=== PATIENT | female | born 1995 | race Caucasian/White ===

== ENCOUNTER 2019-04-30 08:00 | Outpatient (CLI) | payer OTHER ==
[2019-04-30 20:28] LABS: TRICHOMONAS VAGINALIS DNA NEGATIVE (NEGATIVE)
== END 2019-04-30 23:59 | disposition home or self-care (01) ==
LOC: LAB.R 08:00
PROVIDERS: ATTEND Nurse Practitioner Obstetrics & Gynecology
DX: Z36.85 Encounter for antenatal screening for Streptococcus B (principal); Z11.3 Encounter for screening for infections with a predominantly sexual mode of transmission
CPT/HCPCS: 87491; 87591; 87661; 87797

== ENCOUNTER 2019-05-23 08:34 | Outpatient (CLI) | payer OTHER ==
[2019-05-23 08:57] VITALS: BP 115/82
[2019-05-23] MEDS ORDERED: MORPHINE 10 MG/ML VIAL IVP ONE (10:00)
[2019-05-23] MEDS ORDERED: PROMETHAZINE 25 MG/1 ML VIAL IM ONE (10:00)
--- NOTE | 2019-05-23 12:56 | PROVIDER PROGRESS NOTE ---
- HPI Chief Complaint: Labor Check Current : Current EDU 05/25/19 Gestation 39 Weeks and 5 Days 1 Para 0 Vital Signs Temperature 37.4 C 05/23/19 08:46 Heart Rate 95 05/23/19 08:46 Respiratory Rate 18 05/23/19 08:46 Blood Pressure 115/82 H 05/23/19 08:46 Temperature 37.4 C 05/23/19 08:46 Heart Rate 95 05/23/19 08:46 Respiratory Rate 18 05/23/19 08:46 Blood Pressure 115/82 H 05/23/19 08:46 O2 Saturation - Procedures OB Procedure Performed: NST Service Date of procedure: 05/23/19 - Plan Plan: HPI: Pavel presents to [facility] with complaints of contractions that have felt more significant since midnight last night. She denies vaginal bleeding or leakage of fluid and reports +FM. NST performed 05/23/2019 NST read 05/23/2019 NST reactive. FHR baseline 130s, moderate variability, + accels, no decels SVE upon arrival closed/thick/high - unchanged from 48hours prior office visit. Pt given 10mg Morphine and 25mg phenergan for therapeutic rest. 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 Pt released home with precautions. FINAL DIAGNOSIS: False labor >39wks gestation
== END 2019-05-23 10:30 | disposition home or self-care (01) ==
LOC: WFO 08:34 → FBP 08:37 → WFO 10:30
PROVIDERS: ATTEND Nurse Practitioner Obstetrics & Gynecology
DX: O47.1 False labor at or after 37 completed weeks of gestation (principal); Z3A.39 39 weeks gestation of pregnancy
CPT/HCPCS: 96372; 96374; 99212; 99213

== ENCOUNTER 2019-05-24 06:24 | Outpatient (CLI) | payer OTHER ==
[2019-05-24 06:37] VITALS: BP 109/74
[2019-05-24] MEDS ORDERED: MORPHINE 10 MG/ML VIAL IM ONE (08:15)
[2019-05-24] MEDS ORDERED: PROMETHAZINE 25 MG/1 ML VIAL IM ONE (08:15)
--- NOTE | 2019-05-24 23:44 | PROVIDER PROGRESS NOTE ---
- HPI Current : Current EDU 05/25/19 Gestation 39 Weeks and 6 Days 1 Para 0 Vital Signs Temperature 98.4 F 05/24/19 06:36 Heart Rate 105 H 05/24/19 06:36 Respiratory Rate 18 05/24/19 06:36 Blood Pressure 109/74 05/24/19 06:36 Temperature 98.4 F 05/24/19 06:36 Heart Rate 105 H 05/24/19 06:36 Respiratory Rate 18 05/24/19 06:36 Blood Pressure 109/74 05/24/19 06:36 O2 Saturation - Exam Cervical exam: FT/long/high Unchanged over serial exam EFM 135 mod jarrod 15x15 accels no decels TOCO: Q3-10; irreg - Procedures OB Procedure Performed: NST Diagnosis/Indication for NST: Other (early vs threatened/flase labor) NST Procedure: NST Procedure Start Date 05/24/19 Start Time 06:35 Vibroacoustic Stimulation Used No Patient States Movement Yes Service Date of procedure: 05/24/19 Findings: 23 yo at 39+6 wga with painful contractions No change in cervical exam and irreg contraction pattern Given morphine sleep for pain relief Warning signs reviewed and discharged to home
== END 2019-05-24 08:29 | disposition home or self-care (01) ==
LOC: WFO 06:24 → FBP 06:25 → WFO 08:29
PROVIDERS: ATTEND Obstetrics & Gynecology
DX: Z34.03 Encounter for supervision of normal first pregnancy, third trimester (principal)
CPT/HCPCS: 99213

== ENCOUNTER 2019-05-24 10:57 | Inpatient (IN) | payer OTHER ==
[2019-05-24 11:29] LABS: RUPTURE OF MEMBRANES PLUS POSITIVE (NEGATIVE)
[2019-05-24 12:49] LABS: BASOPHILS % (AUTO) 0.3 %; EOSINOPHILS % (AUTO) 0.2 %; HGB - HEMOGLOBIN 12.9 g/dL (12.0-16.0); LYMPHOCYTES # (AUTO) 1.5 10^3/uL (1.5-3.5); LYMPHOCYTES % (AUTO) 13.8 %; MEAN CORPUSCULAR HEMOGLOBIN 31.4 pg (27.0-31.0); MEAN CORPUSCULAR HGB CONC 34.7 g/dL (32.0-36.0); MEAN CORPUSCULAR VOLUME 90.5 fL (81.0-99.0); MEAN PLATELET VOLUME 10.5 fL (7.9-10.8); MONOCYTES # (AUTO) 1.1 10^3/uL (0.0-1.0); MONOCYTES % (AUTO) 10.1 %; NEUTROPHILS # (AUTO) 7.8 10^3/uL (1.5-6.6); NEUTROPHILS % (AUTO) 74.1 %; PLT - PLATELET COUNT 191 10^3/uL (130-450); RED BLOOD COUNT 4.11 10^6/uL (4.20-5.40); RED CELL DISTRIBUTION WIDTH 13.1 % (12.0-15.0); WHITE BLOOD COUNT 10.6 x10^3/uL (4.8-10.8)
[2019-05-24] MEDS ORDERED: LACTATED RINGERS 1,000 ML IV ONE (13:52)
--- NOTE | 2019-05-24 13:56 | HISTORY & PHYSICAL EXAMINATION ---
Admit History - : 1 Parity: 0 Care: positive: [facility] Risk/History: positive: None Complications This : positive: None Smoking Status: Never smoker - Mother's Labs Mother's RH: positive: Positive GBS: positive: Group B Step Negative Rubella Status: positive: Immune - Other Maternal History Other Maternal History: Patient is a 23 yo at 39w6d EGA with SROM. Patient had presented overnight iwth painful contractions and underwent morphine sleep. Presented a few horus later with painful contractions and gross rupture. GBS neg has been uncomplicated. Transfer from [facility]. A+/Rub imm HIV neg,GCCT neg/neg, RPR NR, Hep B neg Hep C neg, Glucola 180, 3 H GTT 66/141/96/103--> wnl FAS wnl, posterior placenta HSV denies Complete influenza and TDaP immunizations Male: Estefania Meds/Allgy - Allergies Allergies/Adverse Reactions: Allergies Allergy/AdvReac Type Severity Reaction Status Date / Time No Known Drug Allergies Allergy Verified 05/23/19 09:53 Review of Systems - Other Findings Other Findings: Back pain c/w labor. As per HPI, otherwise remaining systems are negative. Physical - Abdominal Exam Vital Signs: Reviewed. wnl Contraction Frequency (min/apart): Q2-3 Contraction Intensity: positive: Moderate Uterine Resting Tone: positive: Soft - Monitoring Heart Rate Baseline: 145 Strip Review: positive: Category I - Presentation Presentation: positive: Vertex - Vaginal Exam Membranes: positive: Membranes ruptured Dilation (in cm): 2 Effacement (%): 90 Station: positive: -3 Cervical Position: positive: Posterior - Speculum Exam Findings: positive: Gross leak Plan for Labor - Plan For Labor Plan for Labor: SROM in early labor; GBS neg Expectant management; augment with pitocin as indicated FWB: Vertex, well grown, cat I tracing, GBS neg -Intermittent monitoring as long as remains Cat I PAIN: Epidural as desired Reviewed availability of nitrous oxide Would avoid fentanyl given recency of morphine sleep Inpatient care
[2019-05-24] MEDS ORDERED: LACTATED RINGERS 1,000 ML IV SCH ×2 (14:00→23:00)
[2019-05-24] MEDS ORDERED: TERBUTALINE 1 MG/ML VIAL SUBQ PRN (14:00)
[2019-05-24] MEDS ORDERED: SODIUM CHLORIDE FLUSH 0.9% 10 ML SYRINGE IVP PRN (14:00)
[2019-05-24] MEDS ORDERED: ONDANSETRON 4 MG/2 ML VIAL IVP PRN ×2 (14:00→14:43)
[2019-05-24] MEDS ORDERED: METOCLOPRAMIDE 10 MG/2 ML VIAL IVP PRN ×2 (14:00→14:43)
[2019-05-24] MEDS ORDERED: ROPIVACAINE 0.2% 200 MG/100 ML BAG EP ONE (14:02)
[2019-05-24] MEDS ORDERED: ROPIVACAINE 0.2% PF 20ML VIAL ONE (14:03)
[2019-05-24] MEDS ORDERED: LACTATED RINGERS 500 ML IV ONE (14:43)
[2019-05-24] MEDS ORDERED: diphenhydrAMINE INJ 50 MG/ML VIAL IVP PRN (14:43)
[2019-05-24] MEDS ORDERED: NALOXONE 0.4 MG/ML VIAL IVP PRN (14:43)
[2019-05-24] MEDS ORDERED: NALBUPHINE 10 MG/ML AMP IVP PRN (14:43)
[2019-05-24] MEDS ORDERED: ROPIVACAINE 0.2% 200 MG/100 ML BAG EP PRN (14:43)
[2019-05-24] MEDS ORDERED: ePHEDrine 50 MG/ML VIAL IVP PRN (14:43)
--- NOTE | 2019-05-24 14:46 | ANESTHESIA ---
Pre-Anesthesia VS, & Labs - Diagnosis term labor, IUP - Procedure vaginal delivery Height 5 ft 2 in Weight (kg) 77.111 kg - NPO Last Food Intake: t/o day - Is Patient ?: Yes - Lab Results Current Lab Results: Laboratory Tests 05/24/19 12:40: WBC 10.6, RBC 4.11 L, Hgb 12.9, Hct 37.2, MCV 90.5, MCH 31.4 H, MCHC 34.7, RDW 13.1, Plt Count 191, MPV 10.5, Neut # (Auto) 7.8 H, Lymph # (Auto) 1.5, [place] # (Auto) 1.1 H, Eos # (Auto) 0.0, Baso # (Auto) 0.0, Absolute Nucleated RBC 0.00, Nucleated RBC % 0.0 05/24/19 12:40: Blood Type A POSITIVE, Antibody Screen NEGATIVE Lab results reviewed: Yes Fish Bones: 05/24/19 12:40 Home Medications and Allergies Active Medications Lactated Ringer's (Lr) 1,000 mls @ 150 mls/hr IV .Q6H40M SUSHMA Metoclopramide HCl (Reglan Inj) 10 mg IVP Q6H PRN PRN Reason: Nausea / Vomiting Ondansetron HCl (Zofran Inj) 4 mg IVP Q4H PRN PRN Reason: Nausea / Vomiting Sodium Chloride (Normal Saline Flush 0.9%) 10 ml IVP PRN PRN PRN Reason: NEEDED PER PROVIDER ORDERS Sodium Chloride (Normal Saline Flush 0.9%) 10 ml IVP 0100,0900,1700 SUSHMA Terbutaline Sulfate (Terbutaline) 0.25 mg SUBQ Q1H PRN PRN Reason: tachysystole Allergies/Adverse Reactions: Allergies Allergy/AdvReac Type Severity Reaction Status Date / Time No Known Drug Allergies Allergy Verified 05/23/19 09:53 Anes History & Medical History - Anesthetic History Anesthesia Complications: reports: No previous complications Family history of Anesthesia Complications: Denies Family history of Malignant Hyperthermia: Denies - Medical History Smoking Status: Never smoker - Surgical History Other Past Surgical History: wisdom teeth extraction, sedation - Obstetrical History : 1 Parity: 0 Events: positive: None Complications: positive: None Exam General: Alert, Oriented x3, Cooperative Dental: WNL Mouth Openin Fingerbreadth Neck Mobility: Normal Mallampati classification: II Thyromental Distance: 4-6 cm Respiratory: No respiratory distress Cardiovascular: Regular rate Mental/Cognitive Status: Alert/Oriented X3, Normal for patient Cognitive Status: Within normal limits Plan Anesthesia Type: Epidural Consent for Procedure(s) Verified and Reviewed: Yes Code Status: Attempt Resuscitation ASA classification: 2-Mild systemic disease Is this case an emergency?: No
[2019-05-24] MEDS ORDERED: OXYTOCIN/SODIUM CHLORIDE 500 ML IV SCH (17:00)
[2019-05-24] MEDS ORDERED: SODIUM CHLORIDE FLUSH 0.9% 10 ML SYRINGE IVP SCH (17:00)
[2019-05-24] MEDS ORDERED: fentaNYL 100 MCG/2 ML VIAL ONE ×2 (17:24→20:47)
--- NOTE | 2019-05-24 17:42 | CONSULTATION NOTE ---
Consultation Report: Call for new pain with contractions, midline, as well as left flank pain. Sensory assessed at T12. Good motor of bilat lower extremities. 8cc 0.2% Ropi with 100mcg fentanyl given in 2 5cc doses after negative aspiration. Pt repostioned onto L side. VSS. Pt states complete relief of both complaints after 4 mins.
[2019-05-24] MEDS ORDERED: SODIUM CHLORIDE FLUSH 0.9% 10 ML SYRINGE ONE (20:48)
--- NOTE | 2019-05-24 21:15 | CONSULTATION NOTE ---
Consultation Report: Called for new sharp midline pain, more inferior now, with contractions. Also complains of left flank pain that has returned. Sensory level again assessed at T12 Bilat with good motor to LE. Bolus epidural with 100mcg fentanyl and 5cc 0.2% Ropi. Epidural settings changed to intermittent bolus. 10cc to be delivered [id number] with PCEA at 4cc q10min prn. 1st bolus given via pump over 2mins. Pt remained positioned on L side for bolus. States pain has reduced to a 5/10 down from 10. RN with plans to check pt once comfortable. Pt found to be complete in dilation following exam@[id number]
[2019-05-24] MEDS ORDERED: AMPICILLIN 2 GM VIAL IV ONE (21:58)
[2019-05-24] MEDS ORDERED: SODIUM CHLORIDE 0.9% IV SCH (22:00)
[2019-05-24] MEDS ORDERED: GENTAMICIN IV SCH (22:00)
[2019-05-24] MEDS ORDERED: miSOPROStoL 200 MCG TABLET BC ONE (22:15)
[2019-05-24] MEDS ORDERED: miSOPROStoL 200 MCG TABLET ONE (22:15)
[2019-05-24] MEDS ORDERED: METHYLERGONOVINE 0.2 MG/ML AMP IM PRN (22:26)
[2019-05-24] MEDS ORDERED: ONDANSETRON ODT 4 MG TABLET TL PRN (22:26)
[2019-05-24] MEDS ORDERED: SIMETHICONE CHEW 80 MG TABLET PO PRN (22:26)
[2019-05-24] MEDS ORDERED: CARBOPROST TROMETHAMINE 250 MCG/ML AMP IM PRN (22:26)
--- NOTE | 2019-05-24 22:30 | DELIVERY NOTE ---
Delivery Note - Infant Delivery Method Infant Delivery Method: positive: Spontaneous vaginal delivery - Presentation Presentation: positive: Vertex - Nuchal Cord Nuchal Cord: positive: None - Anesthetic Anesthetic Type: - Amniotic Fluid Description Amniotic Fluid Description: positive: Clear - Episiotomy Type Episiotomy Type: positive: None - Laceration Laceration: positive: 1st degree - Suture Suture Type: positive: Vicryl Suture Size: positive: 3-0 - Delivery Outcome Delivery Outcome: positive: Livebirth - : positive: Placed in direct skin contact with mother, Stimulated, [place] used sex: positive: Male - Cord Cord: positive: 3 vessels - Placenta Placenta: positive: Intact, Expressed - Estimated Blood Loss Estimated Blood Loss (in cc): 450 - Post Delivery Events Post Delivery Events: positive: No post delivery events - Delivery Comments (Free Text/Narrative) Delivery Comments (Free Text/Narrative): STAGE I: Patient is a 23 yo admitted with spontaneous rupture of membranes at 39w6d [facility]. Time of rupture was 10:15 am; fluid was clear. She was 1 cm dilated at presentation. She labored expectantly and then was augmented with pitocin after she failed to progress past 3 cm. GBS negative; antibiotic prophylaxis was not indicated. Epidural for pain management. Stage I labor was noted to start at 14:00. Cat I tracing throughout Stage 1, with periods of intermittent Cat II tracing in the final hour prior to complete dilation. Complete dilation noted at 21:12. Maternal and heart rates were tachycardic with onset at 21:15. Maternal temperature at 38.7 at 21:26; antibiotics were ordered but Stage II was complete prior to administration. STAGE II: Patient pushed well for 16 minutes to deliver a viable male from vertex presentation. Delivery at 21:56. delivered from LORI presentation with right shoulder anterior without difficulty. No nuchal cord. cry prior to completion of delivery. Delivered to maternal chest. Cord clamped x2 and cut after pulsation had ceased. Apgars 9/9; weight pending. Dr. Soto at delivery. STAGE III: Placenta delivered at 22:03 with manual expression and gentle downward traction on umbilical cord. Placenta was examined and found to be intact. Inspection of perineum showed a small midline 1st degree tear repaired with 3-0 Vicryl in the usual sterile fashion. Large clots were passed and patient was given misoprostol 600 mcg and lower uterine segment was cleared of residual clot. Uterine cavity was not manually explored. Bleeding was controlled with pitocin and misoprostol. Total EBL was 450 cc.
[2019-05-24] MEDS: AMPICILLIN 2 GM in SODIUM CHLORIDE 0.9% MINIBAG 100 ML IV SCH (23:15)
[2019-05-24] MEDS: IBUPROFEN 600 MG TABLET PO SCH (23:28)
[2019-05-24] MEDS: ACETAMINOPHEN 500 MG TABLET PO SCH (23:28)
[2019-05-25] MEDS ORDERED: SODIUM CHLORIDE 0.9% 100ML 100 ML IV ONE (00:07)
[2019-05-25] MEDS: IBUPROFEN 600 MG TABLET PO SCH ×3 (05:14→20:12)
[2019-05-25] MEDS: AMPICILLIN 2 GM in SODIUM CHLORIDE 0.9% MINIBAG 100 ML IV SCH (05:15)
[2019-05-25] MEDS ORDERED: METHYLERGONOVINE 0.2 MG/ML VIAL IM PRN (07:25)
[2019-05-25] MEDS: ACETAMINOPHEN 500 MG TABLET PO SCH ×2 (08:35→16:03)
--- NOTE | 2019-05-25 12:29 | PROVIDER PROGRESS NOTE ---
Subjective - Prog Note Date Prog Note Date: 05/25/19 Prog Note Time: 12:27 - Subjective Subjective: Doing well. Afebrile since isolated elevated temp . Had one episode of inability to void needing catheterization. Has since had normal void. Tolerating po and pain is well managed. Minimal/moderate lochia. BF going well. Objective - Vital Signs/Intake & Output Vital Signs: Vital Signs x48h Temp Pulse Resp BP Pulse Ox 05/25/19 12:07 97.5 F L 88 19 102/68 99 05/25/19 08:43 97.5 F L 88 18 104/63 100 05/25/19 06:28 98.2 F 76 16 103/55 L 99 Intake & Output: Intake & Output 05/22/19 05/23/19 05/24/19 05/25/19 23:59 23:59 23:59 23:59 Intake Total 1300 Output Total 250 900 Balance -250 400 - Objective General Appearance: positive: No acute distress Respiratory: positive: No respiratory distress Cardiovascular: positive: Regular rate & rhythm Abdomen: positive: Non-tender, No distention, Other (FF below umbi) Skin: positive: Color nml Extremities: positive: Non-tender, No pedal edema Neurologic/Psychiatric: positive: Oriented x3 - Lab Results Fish Bones: 05/24/19 12:40 Other Labs: Lab Results x24hrs 05/24/19 05/24/19 Range/Units 12:40 12:40 WBC 10.6 (4.8-10.8) x10^3/uL RBC 4.11 L (4.20-5.40) 10^6/uL Hgb 12.9 (12.0-16.0) g/dL Hct 37.2 (37.0-47.0) % MCV 90.5 (81.0-99.0) fL MCH 31.4 H (27.0-31.0) pg MCHC 34.7 (32.0-36.0) g/dL RDW 13.1 (12.0-15.0) % Plt Count 191 (130-450) 10^3/uL MPV 10.5 (7.9-10.8) fL Neut # (Auto) 7.8 H (1.5-6.6) 10^3/uL Lymph # (Auto) 1.5 (1.5-3.5) 10^3/uL [place] # (Auto) 1.1 H (0.0-1.0) 10^3/uL Eos # (Auto) 0.0 (0.0-0.7) 10^3/uL Baso # (Auto) 0.0 (0.0-0.1) 10^3/uL Absolute Nucleated RBC 0.00 x10^3/uL Nucleated RBC % 0.0 /100WBC Blood Type A POSITIVE Antibody Screen NEGATIVE Assessment/Plan - Problem List (1) Vaginal delivery Impression: PPD#1: -PM delivery with chorio; delivered prior to abx administration Has had one dose of gentamicin and ampicillin post-delivery in setting of isolate pp febrile temp DC antibiotics -Routine pp care -Anticipate DC home in am
[2019-05-25] MEDS: DOCUSATE SODIUM 100 MG CAPSULE PO PRN (20:13)
[2019-05-25] MEDS ORDERED: GENTAMICIN 350 MG in SODIUM CHLORIDE 0.9% 100ML 100 ML IV SCH (21:00)
[2019-05-26] MEDS: ACETAMINOPHEN 500 MG TABLET PO SCH ×3 (01:11→16:05)
[2019-05-26] MEDS: IBUPROFEN 600 MG TABLET PO SCH ×2 (05:49→13:08)
[2019-05-26] MEDS: DOCUSATE SODIUM 100 MG CAPSULE PO PRN (08:28)
[2019-05-26 12:00] VITALS: BP 112/75
--- NOTE | 2019-05-26 15:30 | PROVIDER PROGRESS NOTE ---
Subjective - Prog Note Date Prog Note Date: 05/26/19 Prog Note Time: 15:28 - Subjective Subjective: Patient is up and ambulating, tolerating po, and voiding. Pain is well managed with pain medications. Objective - Vital Signs/Intake & Output Vital Signs: Vital Signs x48h Temp Pulse Resp BP Pulse Ox 05/26/19 11:59 97.9 F 84 18 112/75 98 05/26/19 08:00 97.7 F 89 18 110/65 98 Intake & Output: Intake & Output 05/23/19 05/24/19 05/25/19 05/26/19 23:59 23:59 23:59 23:59 Intake Total 2008.625 Output Total 250 900 Balance -250 1109.625 - Objective General Appearance: positive: No acute distress Neck: positive: Nml inspection Respiratory: positive: Chest non-tender, No respiratory distress, Breath sounds nml Cardiovascular: positive: Regular rate & rhythm Abdomen: positive: Non-tender, Other (FF below umbi) Skin: positive: Color nml - Lab Results Fish Bones: 05/24/19 12:40 Other Labs: Lab Results x24hrs 05/26/19 Range/Units 08:05 Blood Type Recheck A POSITIVE Assessment/Plan - Problem List (1) Vaginal delivery Impression: Meeting goals for discharge. Reviewed discharge instructions. Declined prescriptions; will use [id number] medications. -Reviewed dosing. Discharge to home with follow-up in 1 week for support with Nanci Seals
--- NOTE | 2019-05-26 16:46 | Labor Flowsheet ---
Labor Flowsheet Datetime Report Generated by CPN: 05/26/2019 16:45 Datetime: 05/25/2019 11:59 VITAL SIGNS NBP Sys/Tenisha/Mean (mmHg): 102 : 68 : 75 Pulse: 85 Datetime: 05/25/2019 06:25 SpO2 (%): 100 Datetime: 05/25/2019 01:32 Temperature (C): 37.7 Temperature Route: Axillary Datetime: 05/25/2019 00:00 Respirations: 18 Datetime: 05/24/2019 23:45 Pain Presence: Intermittent Pain Goal: 2 Datetime: 05/24/2019 23:30 Stage of : Recovery Pain Type: Cramping; Sharp Pain Location: Abdomen; Perineum; Coccyx Pain Relief Measures: Pain Medication Given Datetime: 05/24/2019 22:32 LaborFlag: Labor Datetime: 05/24/2019 22:26 Membranes Rupture Method: Spontaneous Datetime: 05/24/2019 22:15 Medication Comments: misoprostol 600mcg buccal Datetime: 05/24/2019 21:50 COMMUNICATION Communication: Provider at Bedside Datetime: 05/24/2019 21:44 Provider Reviewed Strip: No Provider Notified (Name): Dr Moser Notification Reason: Status Update; Maternal Vital Sign Change Communication Comments: Reviewed maternal temp and tachycardia Datetime: 05/24/2019 21:40 I/O Interventions: Brennan Discontinued Patient Care Comments: 100ml urine Datetime: 05/24/2019 21:12 VAGINAL EXAM Dilatation (cm): 10.0 Effacement (%): 100 Station: 0 Exam by: william Vaginal Bleeding: Normal Show Datetime: 05/24/2019 21:01 Epidural Procedure Other: Redose Datetime: 05/24/2019 20:59 Pain Assessment Comments: pt rates low abdominal pain as 5/6 out of ten, prior to bolus was 9/10 Datetime: 05/24/2019 20:49 ANESTHESIA Anesthesia Plans: Epidural Datetime: 05/24/2019 20:30 UTERINE ACTIVITY Monitor Mode: External Frequency (min): 2-4 Quality: Strong Duration (sec): 80-100 ASSESSMENT A Monitor Mode: External US FHR Baseline Rate : 155 Variability: Moderate 6-25 bpm Accelerations: Prolonged Decelerations: None Datetime: 05/24/2019 20:27 Pain Coping: Crying Comfort Measures: Breathing/Relaxation; Coaching; Hot/Cold Pack; Family Support; Anesthesia Notifie d Datetime: 05/24/2019 20:15 Resting Tone (Palpate): Relaxed Datetime: 05/24/2019 20:11 Patient Position/Activity: Left Lateral Datetime: 05/24/2019 20:04 Monitor Interventions for UA: [place] Adjusted Datetime: 05/24/2019 20:01 Actions for Decelerations: Side to Side; Oxygen Applied; Provider Notified PATIENT CARE Oxygen Amount (LPM): 10 Oxygen Method: Non-Rebreather Datetime: 05/24/2019 19:39 MATERNAL ASSESSMENT Level of Consciousness: Fully Conscious Headache: Denies Breath Sounds, Right: Clear and Equal Nausea/Vomiting: Denies RUQ Epigastric Pain: Denies Datetime: 05/24/2019 19:15 Pattern: Normal: <= 5 Contractions in 10 Minutes FHR Baseline Changes: No Baseline Change Category: Category II Datetime: 05/24/2019 18:30 MEDICATIONS Pitocin (milliunits): Increased to @ (Annotations: 2) Datetime: 05/24/2019 17:31 PAIN Pain Scale: 8 Datetime: 05/24/2019 17:01 Comments: tracing maternal during position change Datetime: 05/24/2019 14:24 Epidural Procedure: Test Dose Datetime: 05/24/2019 14:14 Anesthesia Interview: W Epidural Positioning: Sitting
--- NOTE | 2019-06-10 14:39 | DISCHARGE SUMMARY ---
Discharge Summary Admit Date: 05/24/19 Discharge Date: 05/26/19 Discharging Provider: Shanti Condition at Discharge: Stable Discharge Disposition: 01 Home, Self Care Discharge Facility Name: [facility] - DIAGNOSES Admission Diagnoses: IUP at 39w6d ega SROM - HPI History of Present Illness: Patient is a 23 yo at 39w6d EGA with SROM. Patient had presented overnight with painful contractions and underwent morphine sleep. Presented a few hours later with painful contractions and gross rupture. has been uncomplicated. Transfer from [facility]. A+/Rub imm/GBS neg - HOSPITAL COURSE Hospital Course: Patient is a 23 yo admitted with spontaneous rupture of membranes at 39w6d ega. Time of rupture was 10:15 am; fluid was clear. She was 1 cm dilated at presentation. She labored expectantly and then was augmented with pitocin after she failed to progress past 3 cm. GBS negative; antibiotic prophylaxis was not indicated. Epidural for pain management. Stage I labor was noted to start at 14:00. Cat I tracing throughout Stage 1, with periods of intermittent Cat II tracing in the final hour prior to complete dilation. Complete dilation noted at 21:12. Maternal and heart rates were tachycardic with onset at 21:15. Maternal temperature at 38.7 at 21:26; antibiotics were ordered but Stage II was complete prior to administration. Patient pushed well for 16 minutes to deliver a viable male from vertex presentation. Delivery at 21:56. Infant delivered from LORI presentation with right shoulder anterior without difficulty. No nuchal cord. cry prior to completion of delivery. Delivered to maternal chest. Cord clamped x2 and cut after pulsation had ceased. Apgars 9/9. Dr. Soto at delivery. Placenta delivered at 22:03 with manual expression and gentle downward traction on umbilical cord. Placenta was examined and found to be intact. Inspection of perineum showed a small midline 1st degree tear repaired with 3-0 Vicryl in the usual sterile fashion. Large clots were passed and patient was given misoprostol 600 mcg and lower uterine segment was cleared of residual clot. Uterine cavity was not manually explored. Bleeding was controlled with pitocin and misoprostol. Total EBL was 450 cc. Had an isolated elevated temp . Had one episode of inability to void needing catheterization. Otherwise, pp course was uncomplicated. Discharge to home on day #2 - ALLERGIES Allergies/Adverse Reactions: Allergies Allergy/AdvReac Type Severity Reaction Status Date / Time No Known Drug Allergies Allergy Verified 05/23/19 09:53 - LABS Result Diagrams: 05/24/19 12:40 - FOLLOW UP Follow Up: 1 week with Nanci Seals - TIME SPENT Time Spent in Discharge (Minutes): 30
== END 2019-05-26 16:15 | disposition home or self-care (01) | DRG 806 ==
LOC: WFO 10:57 → FBP 11:02 → WFO 13:59 → FBP 14:00
PROVIDERS: ADMIT Obstetrics & Gynecology; ATTEND Obstetrics & Gynecology
PROC: 10E0XZZ Delivery of Products of Conception, External Approach (ICD-10-PCS; principal; 2019-05-24)
PROC: 0HQ9XZZ Repair Perineum Skin, External Approach (ICD-10-PCS; 2019-05-24)
DX: O42.02 Full-term premature rupture of membranes, onset of labor within 24 hours of rupture (principal); O75.2 Pyrexia during labor, not elsewhere classified; Z37.0 Single live birth; O86.4 Pyrexia of unknown origin following delivery; O70.0 First degree perineal laceration during delivery; O32.2XX0 Maternal care for transverse and oblique lie, not applicable or unspecified; O99.89 Other specified diseases and conditions complicating pregnancy, childbirth and the puerperium; R33.9 Retention of urine, unspecified; Z3A.39 39 weeks gestation of pregnancy
CPT/HCPCS: 36415; 84112; 85025; 86850; 86900; 86901; 87070; 87077; 87181; 87205; 96372; 99213; A9270; J1580; J2795; J7120; 99211

== ENCOUNTER 2021-07-05 08:08 | Emergency (ER) | payer OTHER ==
--- NOTE | 2021-07-05 08:23 | ED Physician Documentation ---
PD HPI NVD - Stated complaint Stated Complaint: DIARRHEA - History obtained from History obtained from: Patient - History of Present Illness Timing - onset: How many days ago (5) Timing - duration: Days (5) Timing - details: Abrupt onset (initially NVD which then decreased to nausea with continued diarrhea 5-6 times daily.), Still present, Waxing and waning Associated symptoms: Abdominal pain (cramping intermittent), Loss of appetite (but still hydrating with normal urine output.). No: Fever, Melena Contributing factors: Sick contact (other coworkers had NVD prior to her but lasted just 1-2 days.). No: Bad food Improved by: No: Eating Worsened by: Eating (she has diarrheal movement soon after eating.) Similar symptoms before: Has not had sx before Recently seen: Not recently seen Review of Systems Constitutional: reports: Myalgias, Fatigue. denies: Fever, Chills Nose: denies: Rhinorrhea / runny nose, Congestion Throat: denies: Sore throat Respiratory: denies: Cough GI: reports: Abdominal Pain (intermittent cramps), Nausea, Diarrhea. denies: Bloody / black stool : denies: Dysuria, Frequency Neurologic: reports: Generalized weakness. denies: Focal weakness, Numbness, Near syncope, Headache PD PAST MEDICAL HISTORY - Past Medical History Cardiovascular: None Respiratory: None Neuro: None Endocrine/Autoimmune: None - Present Medications Home Medications: Ambulatory Orders Medication Instructions Recorded Confirmed L.acid/L.casei/B.bif/B.rubia/Fos 1 each PO TID 7 Days #20 cap 07/05/21 [Probiotic Blend Capsule] Loperamide [Imodium] 4 mg PO QID PRN #24 cap 07/05/21 - Allergies Allergies/Adverse Reactions: Allergies Allergy/AdvReac Type Severity Reaction Status Date / Time No Known Drug Allergies Allergy Verified 05/23/19 09:53 - Social History Smoking Status: Never smoker PD ED PE NORMAL - Vitals Vital signs reviewed: Yes - General General: Alert and oriented X 3, No acute distress, Well developed/nourished - HEENT HEENT: Pharynx benign - Neck Neck: Supple, no meningeal sign, No adenopathy - Cardiac Cardiac: RRR, No murmur - Respiratory Respiratory: Clear bilaterally - Abdomen Abdomen: Normal bowel sounds, Soft, Non tender, Non distended - Derm Derm: Normal color, Warm and dry - Neuro Neuro: Alert and oriented X 3, No motor deficit, Normal speech Results - Vitals Vitals: Vital Signs - 24 hr 07/05/21 08:21 Temperature 36.8 C Heart Rate 89 Respiratory 18 Rate Blood Pressure 134/90 H O2 Saturation 99 Oxygen O2 Source Room air - Labs Labs: Laboratory Tests 07/05/21 09:30 Stl C. diff Tox B Gene NEGATIVE PD MEDICAL DECISION MAKING - ED course Complexity details: considered differential (persistent diarrhea and cramps for 5 days. Likely viral enteritis, but consider bacterial cause. Has not taken meds, so can use antiemetic and antidiarrheal. Screen for cdiff and culture such as ecoli. ), d/w patient Departure - Departure Disposition: 01 Home, Self Care Clinical Impression: Acute diarrhea Condition: Stable Record reviewed to determine appropriate education?: Yes Instructions: ED Diarrhea Viral Follow-Up: KEIS[facility]ila [Provider Group] Prescriptions: Loperamide [Imodium] 4 mg PO QID PRN #24 cap PRN Reason: Diarrhea L.acid/L.casei/B.bif/B.rubia/Fos [Probiotic Blend Capsule] 1 each PO TID 7 Days #20 cap Comments: Small frequent fluids. Regular food is okay but I would start with starches and carbohydrates initially. After a diarrhea episode for several days, your natura l sylvie will be diminished for a while and you will tend to be lactose intolerant and not digest as well initially. At this point I would presume most likely a food poisoning or viral gastroenteritis. I would treat this with antidiarrhea medicines 4 times daily as needed. Also adding probiotic supplements and foods for the next week. I would anticipate improvement over the next couple of days. If you have persistent diarrhea despite these, then obtain a sample of the diarrhea and bring it to your primary care for specific testing for bacterial causes such as C. difficile, E. coli, Salmonella, etc. If these were present (which is fairly uncommon), then they would need specific antibiotic treatment which differs by the germ present. I transmitted your prescriptions to the [facility] pharmacy. Discharge Date/Time: 07/05/21 09:35
[2021-07-05 08:33] VITALS: BP 134/90
[2021-07-05] MEDS ORDERED: DIPHENOX/ATROPINE 2.5/0.025 MG TABLET PO STA (09:06)
== END 2021-07-05 09:35 | disposition home or self-care (01) ==
LOC: ED 08:08
DX: R19.7 Diarrhea, unspecified (principal)
CPT/HCPCS: 81599; 87493; 99282; 99283; A9270; 87045; 87046